=== PATIENT | female | born 1995 | race Caucasian/White ===

== ENCOUNTER 2022-09-04 07:05 | Emergency (ER) | payer SELFPAY ==
[2022-09-04] MEDS ORDERED: Acetaminophen 500 MG TAB ONE (07:33)
[2022-09-04] MEDS ORDERED: Ketorolac Tromethamine 30 MG/ML VIAL ONE (07:34)
[2022-09-04] MEDS ORDERED: Boostrix 0.5 ML (Tdap) VIAL (>/=7 yrs of age) IM ONE (08:30)
== END 2022-09-04 08:39 | disposition home or self-care (01) ==
LOC: CSHERS 07:05
DX: S67.191A Crushing injury of left index finger, initial encounter (principal); S67.22XA Crushing injury of left hand, initial encounter; E03.9 Hypothyroidism, unspecified; W22.8XXA Striking against or struck by other objects, initial encounter
CPT/HCPCS: 90471; 90715; 96372; J1885